=== PATIENT | female | born 2000 | race Two or more races ===

== ENCOUNTER 2024-07-25 18:17 | Emergency (ER) | payer SELFPAY ==
[2024-07-25 18:19] VITALS: BMI 37.8
[2024-07-25 18:22] VITALS: BP 129/79; PULSE 96; RESP 19; TEMP 37.1; O2SAT 98
[2024-07-25 18:27] VITALS: PULSE 96; RESP 18; O2SAT 99
--- NOTE | 2024-07-25 19:23 | EDNOTE_ITS ---
ED Abdominal Pain RME/HPI General Chief Complaint: Abdominal Pain Stated complaint: ABD PAIN Time seen by provider: 07/25/24 18:54 Arrival date/time: 07/25/24 18:17 23F with no significant PMH presents to ED with 10 min of sudden gen ab pain earlier today that completely resolved. Patient denies dysuria, vaginal bleeding, N/V, and diarrhea. Limitations: no limitations Related Data Previous Rx's ?Medication ?Instructions ?Recorded Promethazine Hcl/Dextromethorphan 1 tsp PO Q4-6HRPRN PRN cough #120 08/15/17 SYRUP * (PHENERGAN DM SYRUP *) mL ibuprofen 600 mg tablet 600 mg PO Q6HR PRN PAIN #30 tabs 08/15/17 pseudoephedrine HCl 60 mg tablet 60 mg PO [id number] PRN congestion 08/15/17 (Sudogest) #28 tabs Allergies Allergy/AdvReac Type Severity Reaction Status Date / Time No Known Allergies Allergy Verified 02/20/21 16:22 Review of Systems Review of Systems Systems Reviewed: All systems reviewed, normal except as documented Constitutional Constitutional: Reports system reviewed and no additional complaints, except as documented, Denies fever(s) and Denies headache(s) ENT Ears, Nose, Mouth, and Throat: Denies disequilibrium and Denies headache(s) Cardiovascular Cardiovascular: Reports system reviewed and no additional complaints, except as documented, Denies chest pain and Denies dyspnea Respiratory Respiratory: Reports system reviewed and no additional complaints, except as documented, Denies cough and Denies dyspnea Gastrointestinal Gastrointestinal: Reports system reviewed and no additional complaints, except as documented, Reports as per HPI, Reports abdominal pain, Denies nausea and Denies vomiting Neurologic Neurologic: Reports system reviewed and no additional complaints, except as documented, Denies confusion, Denies disequilibrium and Denies headache(s) Psychiatric Psychiatric: Denies confusion Past Medical History Social History SMOKING STATUS: Never smoker ED Exam General Limitations: Present no limitations General appearance: Present alert and in no apparent distress Head Head exam: Present atraumatic Eye Eye exam: Present normal appearance, PERRL and EOMI ENT ENT exam: Present normal exam, normal oropharynx and mucous membranes moist Neck Neck exam: Present normal inspection, full ROM and trachea midline Chest Chest inspection: Present normal inspection and symmetric chest wall rise Respiratory Respiratory exam: Present normal lung sounds bilaterally Cardiovascular Cardiovascular exam: Present regular rate, normal rhythm and normal heart sounds Abdominal Exam Abdominal exam: Present soft and normal bowel sounds Extremities Exam Extremities exam: Present normal inspection and full ROM Back Exam Back exam: Present normal inspection and full ROM Neurological Exam Neurological exam: Present alert, oriented X3 and CN II-XII intact Psychiatric Psychiatric exam: Present normal affect and normal mood Skin Skin exam: Present warm, dry, intact and normal color Course Quality Measures none Vital Signs Vital signs: Vital Signs Temperature 98.7 F 07/25/24 18:22 Pulse Rate 96 07/25/24 18:22 Respiratory Rate 19 07/25/24 18:22 Blood Pressure 129/79 07/25/24 18:22 Pulse Oximetry (%) 98 07/25/24 18:22 Oxygen Delivery Method Room Air 07/25/24 18:22 O2 at 98% on RA and WNLs Abdominal Pain MDM MDM Narrative MDM Narrative:: 23F with no significant PMH presents to ED with 10 min of sudden gen ab pain earlier today that completely resolved. Patient denies dysuria, vaginal bleeding, N/V, and diarrhea. Physical exam reveals no ab tenderness. Patient is afebrile, calm, and alert. Patient declines diagnostics because all symptoms are gone. Patient will return if worsening and/or pain is back. Patient data External records reviewed:: [facility] previous records Clinical information provided by:: patient Social determinants that could affect healthcare access:: none Patient has the following chronic illnesses:: none How is presenting disease/condition affected by chronic disease/condition?: no chronic disease Evaluation data The following diagnostics were reviewed and interpreted by me:: other (specify) (none) Lab and/or radiology exams considered but not ordered:: not ordered Interpretation Summary: n/a Medications / Prescriptions Medications or Prescriptions considered but not ordered:: not ordered Medication administrations:: n/a Consultations Consultation(s) initiated? (list below): No Diagnosis Differential diagnosis abdominal pain: abdominal pain, acute appendicitis, calculus of kidney, constipation, diverticulitis, endometriosis, gastroenteritis, pancreatitis and small bowel obstruction Most likely diagnosis given after review of the tests above:: ab pain Admission Indicated Admission indicated?: not indicated Admission Request Was there a request for admission?: No Disposition Plan Disposition Plan: Discharge Discharge Attestation Discharge Attestation: The patient and all family members were given an opportunity to ask questions and understood the discharge instructions. Discharge instructions specifically effects, indications for sooner follow up or return to the emergency department, and the expected course of current diagnosis. Patient condition: Stable Discharge Plan Plan Patient Disposition: HOME (Self Care) Disposition Comment: Stable Prescriptions/Referrals Prescriptions/Med Rec: No Action ibuprofen 600 MG tablet 600 mg PO Q6HR PRN (Reason: PAIN) Qty: 30 0RF pseudoephedrine HCl [Sudogest] 60 MG tablet 60 mg PO [id number] PRN (Reason: congestion) Qty: 28 0RF Promethazine Hcl/Dextromethorphan SYRUP * (PHENERGAN DM SYRUP *) 473 ML syrup 1 tsp PO Q4-6HRPRN PRN (Reason: cough) Qty: 120 0RF Referrals: Neeraj Gardner MD [Primary Care Provider] - In 1 week Problem List Clinical Impression: Abdominal pain Patient/Caregiver Discharge Instructions Education Materials: ED Pain, Acute, Uncertain Cause Additional Instructions: Please follow-up with PCP within 24-48 hours and return immediately if symptoms worsen. Print Language: Namibian Stand Alone Forms: Patient Portal Info Letter EVY/JAMEY Supervising Physician EVY/JAMEY Supervising Physician: Dr. Albrecht
== END 2024-07-25 19:27 | disposition home or self-care (01) ==
PROVIDERS: Emergency Provider Emergency Medicine; PCP Family Medicine
DX: R10.9 Unspecified abdominal pain (principal)
CPT/HCPCS: 99281

== ENCOUNTER 2025-03-20 03:50 | Emergency (ER) | payer MEDICAID, SELFPAY ==
[2025-03-20 03:56] VITALS: BP 129/66; PULSE 76; RESP 18; TEMP 36.5; O2SAT 98
--- NOTE | 2025-03-20 04:17 | XR_ITS ---
Examination: Abdomen sonogram, Limited Date and time of exam: March 20, 2025 0430 hours INDICATIONS: Epigastric pain radiating to the back beginning 3 hours ago Technique: Real-time kennedy scale transabdominal sonographic images of the upper abdomen obtained. Findings: Gallbladder sludge Gallstones Normal gallbladder wall 0.3 cm Common bile duct 0.3 cm Pancreatic head 3.4 cm Liver 17.2 cm fatty infiltration lobular contour no focal liver lesions Normal hepatopedal portal venous flow Patent IVC IMPRESSION: Cholelithiasis, negative for cholecystitis
[2025-03-20] MEDS: ONDANSETRON ODT 4 MG TABRAP PO (04:24)
[2025-03-20] MEDS: KETOROLAC INJ 60 MG/2 ML VIAL IM (04:24)
[2025-03-20 04:56] LABS: Basophils # (Auto) 0.0 Thou/mm3 (0.0-0.2); Basophils % (Auto) 0 % (0-2.5); Eosinophils # (Auto) 0.0 Thou/mm3 (0.0-0.5); Eosinophils % (Auto) 0 % (0-10); Hematocrit 37.5 % (36.0-46.0); Hemoglobin 12.4 g/dL (12.0-16.0); Immature Granulocytes Auto 0.02 Thou/mm3 (0.00-0.00); Lymphocytes # (Auto) 2.0 Thou/mm3 (1.0-4.8); Lymphocytes % (Auto) 21 % (10-50); Mean Corpuscular HGB Conc 33.1 g/dl (31.0-37.0); Mean Corpuscular Hemoglobin 26.5 pg (25.0-35.0); Mean Corpuscular Volume 80 fL (80-100); Monocytes # (Auto) 0.5 Thou/mm3 (0.0-0.8); Monocytes % (Auto) 5 % (0-12); Neutrophils # (Auto) 7.1 Thou/mm3 (1.8-7.7); Neutrophils % (Auto) 73 % (37-80); Nucleated Red Blood Cell # 0.00 Thou/mm3 (0.00-0.00); Nucleated Red Blood Cell % 0 /100 WBC (0); Platelet Count 262 Thou/mm3 (140-440); RDW Standard Deviation 38.5 fL (36.4-46.3); Red Blood Count 4.68 Miln/mm3 (4.00-5.20); White Blood Count 9.7 Thou/mm3 (3.6-11.0)
--- NOTE | 2025-03-20 05:10 | PRELIM_ITS ---
Gallbladder ultrasound with Doppler and wave Doppler spectral analysis. March 20, 2025 0430 hours Clinical history: RUQ pain. Comparison: No prior study is available for comparison. Findings: The visualized liver demonstrates increased echogenicity without mass or ductal dilatation. Hepatomegaly. Gallstones and gallbladder sludge. No gallbladder wall thickening or pericholecystic fluid is identified. The common duct is normal in caliber at 2.6 mm. No free fluid is demonstrated on the submitted images. The portal vein is patent with hepatopetal flow normal wave Doppler spectral analysis. The portal vein is patent with hepatopetal flow and normal with Doppler spectral analysis. The hepatic veins at patent with normal wave Doppler spectral analysis. The imaged portions of the right kidney are within normal limits. Darden sign is not available at the time of this report. Impression: Gallstones and gallbladder sludge without evidence of acute cholecystitis. If the clinical suspicion for acute cholecystitis is still high consider correlation with HIDA scan. Hepatomegaly associated with liver steatosis, suspicious for steatohepatitis. Report Electronically Signed By: Alessandro Bermudez 03/20/2025 5:10:05 AM [EST]
[2025-03-20 05:37] LABS: Alanine Aminotransferase 167 U/L (10-49); Albumin, Serum 4.4 gm/dL (3.5-5.0); Albumin/Globulin Ratio 1.7 (1.2-2.2); Alcohol, Blood Medical < 3.0 mg/dL (0-10.0); Alkaline Phosphatase 63 U/L (46-116); Anion Gap 11 (7-16); Aspartate Amino Transferase 309 U/L (0-34); BUN/Creatinine Ratio 10 Ratio (12-20); Bilirubin,Total 1.1 mg/dL (0.3-1.2); Blood Urea Nitrogen 10 mg/dL (9-23); Calcium 8.8 mg/dL (8.3-10.6); Calcium (Corrected) 8.8 mg/dL (8.5-10.1); Carbon Dioxide 24.8 mMol/L (20.0-31.0); Chloride 105 mMol/L (98-107); Creatinine (Component) 1.0 mg/dL (0.6-1.3); Globulin 2.6 gm/dL (2.3-3.5); Glucose 210 mg/dL (74-106); Lipase 35 U/L (12-53); Osmolality,Calculated 286 (275-295); Potassium 3.6 mMol/L (3.4-5.1); Sodium 141 mMol/L (136-145); Total Protein 7.0 gm/dL (5.7-8.2); eGFR > 60 See Note
[2025-03-20 05:37] LABS: Collection Type, Urine Clean Catch
--- NOTE | 2025-03-20 05:38 | PD.EDRME ---
Rapid Medical Screening Exam RME Arrival date/time: 03/20/25 03:50 24F with no significant PMH presents to ED with several hours of RUQ pain and N/V. Chief Complaint: Abdominal Pain Time Seen by Provider: 03/20/25 04:17 Vital signs: Vital Signs Temperature 97.7 F 03/20/25 03:56 Pulse Rate 76 03/20/25 03:56 Respiratory Rate 18 03/20/25 03:56 Blood Pressure 129/66 03/20/25 03:56 Pulse Oximetry (%) 98 03/20/25 03:56 Oxygen Delivery Method Room Air 03/20/25 03:56
[2025-03-20 05:48] LABS: Bacteria,Urine Rare; Bilirubin,Urine Negative (Negative); Blood,Urine 2+ (Negative); Clarity,Urine Turbid (Clear/Hazy); Color,Urine Yellow (Lt Yel-Yel); Culture Indicated,Urine Not Indicated; Glucose, Urine 3+ (Negative); Ketones,Urine 2+ (Negative); Leukocyte Esterase,Urine Positive (Negative); Nitrite,Urine Negative (Negative); PH,Urine 6.0 (5.0-7.0); Protein,Urine 1+ (Neg - Trace); RBC,Urine 7 /hpf (0-3); Specific Gravity,Urine 1.034 (1.001-1.035); Squamous Epithelial Cell,Urine 1 /hpf (0-5); Urobilinogen,Urine 2.0 mg/dL (0.0-1.0); WBC,Urine 10 /hpf (0-5)
[2025-03-20 05:51] LABS: HCG Qualitative,Urine Negative
[2025-03-20 06:07] LABS: Amphetamine/Methamp Scrn,U Negative (Negative); Barbiturate Screen,Urine Negative (Negative); Benzodiazepines Screen,Urine Negative (Negative); Benzoylecgonine Screen, Ur Negative (Negative); Fentanyl Screen,Urine Negative (Negative); Opiate Screen,Urine Negative (Negative); THC Screen,Urine Negative (Negative)
[2025-03-20 07:38] VITALS: BP 120/70; PULSE 92; RESP 16; TEMP 36.8; O2SAT 98; BMI 40.8
--- NOTE | 2025-03-20 07:53 | PD.EDADULT ---
ED General RME/HPI General Chief complaint: Abdominal Pain Stated complaint: ABD PAIN Time Seen by Provider: 03/20/25 04:17 Arrival date/time: 03/20/25 03:50 RME / HPI RME / HPI narrative: 03/20/25 03:50 24F with no significant PMH presents to ED with several hours of RUQ pain and N/V. Related Data Previous Rx's ?Medication ?Instructions ?Recorded Promethazine Hcl/Dextromethorphan 1 tsp PO Q4-6HRPRN PRN cough #120 08/15/17 SYRUP * (PHENERGAN DM SYRUP *) mL ibuprofen 600 mg tablet 600 mg PO Q6HR PRN PAIN #30 tabs 08/15/17 pseudoephedrine HCl 60 mg tablet 60 mg PO [id number] PRN congestion 08/15/17 (Sudogest) #28 tabs Allergies Allergy/AdvReac Type Severity Reaction Status Date / Time No Known Allergies Allergy Verified 03/20/25 03:51 Review of Systems Review of Systems Systems Reviewed: All systems reviewed, normal except as documented ED Exam Narrative Physical exam: GENERAL: NAD, AAOx3 HEENT: Moist mucosa. Eyes open, symmetrical, & clear CARDIO: Heart RRR, no obvious murmurs PULM: No noted coughing/dyspnea CTA B/L, no R/W/R GI: Abdomen soft, nondistended, no pain on palpation. BSx4 SKIN/MSK/EXT: No wounds/rashes/edema/amputations, no pain on palpation. Pedal pulses present B/L NEURO: AAOx3, no focal neuro deficits, able to move all 4 extremities Course Course Course Narrative: See MDM Quality Measures none Orders Category Date Time Status US gall bladder Stat Exams 03/20/25 04:17 Taken Alcohol, Blood Medical Stat Lab 03/20/25 04:45 Completed CBC Stat Lab 03/20/25 04:45 Completed CMP [Comprehensive Metabolic Panel] Stat Lab 03/20/25 04:45 Completed Drug Screen,Urine Stat Lab 03/20/25 05:23 Completed HCG Qualitative,Urine Stat Lab 03/20/25 05:25 Completed Lipase Stat Lab 03/20/25 04:45 Completed Urinalysis, C/S if Indicated Stat Lab 03/20/25 05:25 Completed Ketorolac Inj [Toradol Inj] Med 03/20/25 04:17 Discontinued 60 mg IM X1 ONE Ondansetron Odt [Zofran Odt] Med 03/20/25 04:17 Discontinued 4 mg PO X1 ONE Vital Signs Vital signs: Vital Signs Temperature 97.7 F 03/20/25 03:56 Pulse Rate 76 03/20/25 03:56 Respiratory Rate 18 03/20/25 03:56 Blood Pressure 129/66 03/20/25 03:56 Pulse Oximetry (%) 98 03/20/25 03:56 Oxygen Delivery Method Room Air 03/20/25 03:56 Discharge Plan Plan Patient Disposition: HOME (Self Care) Prescriptions/Referrals Prescriptions/Med Rec: No Action ibuprofen 600 MG tablet 600 mg PO Q6HR PRN (Reason: PAIN) Qty: 30 0RF pseudoephedrine HCl [Sudogest] 60 MG tablet 60 mg PO [id number] PRN (Reason: congestion) Qty: 28 0RF Promethazine Hcl/Dextromethorphan SYRUP * (PHENERGAN DM SYRUP *) 473 ML syrup 1 tsp PO Q4-6HRPRN PRN (Reason: cough) Qty: 120 0RF Referrals: No Primary/Family,Physician [Primary Care Provider] - In 1 week Problem List Clinical Impression: Biliary colic Patient/Caregiver Discharge Instructions Additional Instructions: On examination patient symptoms have resolved completely. Patient at this time is safe for discharge. Patient recommended to avoid fatty and greasy foods at this time Follow-up with GI specialist and primary care physician within 1 week of discharge and can consider further imaging studies such as HIDA scan. Patient is instructed should symptoms recur or worsen patient can return to the ER. Print Language: Divehi Stand Alone Forms: Mariah Award Info., Patient Portal Info Letter MDM Narrative MDM hospital course: Assumed care from previous shift. 24-year-old female with no past medical history presents to the ED due to right upper quadrant pain nausea vomiting. Patient states symptoms have happened before few months ago, however this time symptoms were worse and patient decided to come to the ER. She denies fever, chills, shortness of breath, chest pain, palpitations, recent travel, sick contacts. 0754: Labs reviewed CBC within normal limits, CMP shows some elevated liver enzymes, gallbladder ultrasound was done negative for acute cholecystitis, however she does show some gallstones. On examination patient symptoms have resolved completely. Patient at this time is safe for discharge. Follow-up with GI specialist and primary care physician within 1 week of discharge and can consider further imaging studies such as HIDA scan. Patient is instructed should symptoms recur or worsen patient can return to the ER. Clinical Information Provided by patient Medical Records Reviewed [facility] Chronic Illness/Social Conditions which may negatively complicate care or outcome(s)-explain: None or not applicable Lab Interpretation Labs: interpreted by ri Lab(s) interpretation(s): CBC unremarkable CMP shows some elevated liver enzymes Imaging Imaging interpretation: see narrative above Radiology reports / interpretation(s): See radiology report Medication Administration(s) Medication Administration History Discontinued Medications Ketorolac Tromethamine (Ketorolac Inj 60 Mg/2 Ml Vial) 60 mg IM X1 ONE Stop: 03/20/25 04:18 Last Admin: 03/20/25 04:24 Dose: 60 mg Documented By: JERRICA Ondansetron HCl (Ondansetron Odt 4 Mg Tabrap) 4 mg PO X1 ONE; Protocol Stop: 03/20/25 04:18 Last Admin: 03/20/25 04:24 Dose: 4 mg Documented By: JERRICA See above Diagnosis Differential diagnosis: Biliary colic, acute cholecystitis, cholangitis Most likely dx, and/or detailed dx discussion: Biliary colic Dispositon Disposition: Discharge Home
[2025-03-20 08:51] VITALS: BP 124/65; PULSE 74; RESP 18; TEMP 36.7; O2SAT 100
== END 2025-03-20 08:56 | disposition home or self-care (01) ==
PROVIDERS: Physician Assistant; Emergency Provider Family Medicine
DX: K80.70 Calculus of gallbladder and bile duct without cholecystitis without obstruction (principal)
CPT/HCPCS: 36415; 76705; 80053; 80307; 80320; 81001; 81025; 83690; 85025; 96372; 99283; J1885; Q0162; G0480

== ENCOUNTER 2025-06-05 19:10 | Emergency (ER) | payer MEDICAID, SELFPAY ==
[2025-06-05 19:10] VITALS: BMI 37.8
[2025-06-05 19:55] VITALS: BP 112/78; PULSE 98; RESP 16; TEMP 36.8; O2SAT 100
--- NOTE | 2025-06-05 20:07 | PD.EDABDPN ---
ED Abdominal Pain RME/HPI General Chief Complaint: Abdominal Pain Stated complaint: GALLBLADDER PAIN Time seen by provider: 06/05/25 20:00 Arrival date/time: 06/05/25 19:10 24F with history of gallstones presents to ED with continued RUQ/epigastric pain. Patient hasn't reached out to outpatient surgeon because she's afraid of surgery. Patient did not take any meds for this pain today. Patient does not want any tests, only meds. Patient denies N/V. Limitations: no limitations Related Data Previous Rx's ?Medication ?Instructions ?Recorded Promethazine Hcl/Dextromethorphan 1 tsp PO Q4-6HRPRN PRN cough #120 08/15/17 SYRUP * (PHENERGAN DM SYRUP *) mL ibuprofen 600 mg tablet 600 mg PO Q6HR PRN PAIN #30 tabs 08/15/17 pseudoephedrine HCl 60 mg tablet 60 mg PO [id number] PRN congestion 08/15/17 (Sudogest) #28 tabs Allergies Allergy/AdvReac Type Severity Reaction Status Date / Time No Known Allergies Allergy Verified 06/05/25 19:12 Review of Systems Review of Systems Systems Reviewed: All systems reviewed, normal except as documented Gastrointestinal Gastrointestinal: Reports as per HPI and Reports abdominal pain Past Medical History Past Medical History CARDIAC: Negative Congestive Heart Failure RESPIRATORY: Negative Chronic Obstructive Pulmonary Disease (COPD) GENITOURINARY: Negative Renal Disease ENDOCRINE: Negative Diabetes Mellitus Type 1 or Diabetes Mellitus Type 2 Family History FAMILY HISTORY: Positive Family Cardiac Disorders and Family Cancer (PT'S AUNT BREAST CANCER) Social History SMOKING STATUS: Never smoker ED Exam General Limitations: Present no limitations General appearance: Present alert and in no apparent distress Head Head exam: Present atraumatic Neck Neck exam: Present normal inspection, full ROM and trachea midline Chest Chest inspection: Present normal inspection and symmetric chest wall rise Neurological Exam Neurological exam: Present alert and oriented X3 Psychiatric Psychiatric exam: Present normal affect and normal mood Skin Skin exam: Present warm, dry, intact and normal color Course Quality Measures none Orders Category Date Time Status Ketorolac Inj [Toradol Inj] Med 06/05/25 20:00 Once 60 mg IM X1 ONE Vital Signs Vital signs: Vital Signs Temperature 98.3 F 06/05/25 19:55 Pulse Rate 98 06/05/25 19:55 Respiratory Rate 16 06/05/25 19:55 Blood Pressure 112/78 06/05/25 19:55 Pulse Oximetry (%) 100 06/05/25 19:55 Oxygen Delivery Method Room Air 06/05/25 19:55 O2 at 100% on RA and WNLs Abdominal Pain MDM MDM Narrative MDM Narrative:: 24F with history of gallstones presents to ED with continued RUQ/epigastric pain. Patient hasn't reached out to outpatient surgeon because she's afraid of surgery. Patient did not take any meds for this pain today. Patient does not want any tests, only meds. Patient denies N/V. Physical exam reveals uncomfortable female. Patient is afebrile and alert. Meds and anger control counselor given. Patient data External records reviewed:: [facility] previous records Clinical information provided by:: patient Social determinants that could affect healthcare access:: none Patient has the following chronic illnesses:: gallstones How is presenting disease/condition affected by chronic disease/condition?: no chronic disease Evaluation data The following diagnostics were reviewed and interpreted by me:: other (specify) (none) Lab and/or radiology exams considered but not ordered:: not ordered Interpretation Summary: n/a Medications / Prescriptions Medications or Prescriptions considered but not ordered:: ordered Medication administrations:: Medication Administration History Ketorolac Tromethamine (Ketorolac Inj 60 Mg/2 Ml Vial) 60 mg IM X1 ONE Stop: 06/05/25 20:01 above Consultations Consultation(s) initiated? (list below): No Diagnosis Differential diagnosis abdominal pain: abdominal pain, acute appendicitis, calculus of kidney, constipation, diverticulitis, endometriosis, gastroenteritis, pancreatitis, small bowel obstruction and other (gallstones) Most likely diagnosis given after review of the tests above:: gallstones Admission Indicated Admission indicated?: not indicated Admission Request Was there a request for admission?: No Disposition Plan Disposition Plan: Discharge Discharge Attestation Discharge Attestation: The patient and all family members were given an opportunity to ask questions and understood the discharge instructions. Discharge instructions specifically effects, indications for sooner follow up or return to the emergency department, and the expected course of current diagnosis. Patient condition: Stable Discharge Plan Plan Patient Disposition: HOME (Self Care) Discharge Disposition comment: Stable Prescriptions/Referrals Prescriptions/Med Rec: No Action ibuprofen 600 MG tablet 600 mg PO Q6HR PRN (Reason: PAIN) Qty: 30 0RF pseudoephedrine HCl [Sudogest] 60 MG tablet 60 mg PO [id number] PRN (Reason: congestion) Qty: 28 0RF Promethazine Hcl/Dextromethorphan SYRUP * (PHENERGAN DM SYRUP *) 473 ML syrup 1 tsp PO Q4-6HRPRN PRN (Reason: cough) Qty: 120 0RF Problem List Clinical Impression: Gallstones Patient/Caregiver Discharge Instructions Education Materials: ED Gallstones with Biliary Colic Additional Instructions: Please follow-up with PCP within 24-48 hours and return immediately if symptoms worsen. NSAIDs like ibuprofen tend to work better for this type of pain. See PCP for referral to general surgeon. Print Language: Italian Stand Alone Forms: Patient Portal Info Letter EVY/SOUVENIR ASSEMBLER Supervising Physician EVY/JAMEY Supervising Physician: Dr. Damon
[2025-06-05] MEDS: KETOROLAC INJ 60 MG/2 ML VIAL IM (20:18)
== END 2025-06-05 20:21 | disposition home or self-care (01) ==
LOC: SERX 20:18
PROVIDERS: Emergency Provider Emergency Medicine; PCP Family Medicine
DX: K80.20 Calculus of gallbladder without cholecystitis without obstruction (principal)
CPT/HCPCS: 96372; 99283; J1885

== ENCOUNTER 2025-07-18 05:50 | Day surgery (SDC) | payer MEDICAID, SELFPAY ==
[2025-07-16 12:59] VITALS: BMI 35.3
[2025-07-16 14:59] LABS: Basophils # (Auto) 0.0 Thou/mm3 (0.0-0.2); Basophils % (Auto) 0 % (0-2.5); Eosinophils # (Auto) 0.0 Thou/mm3 (0.0-0.5); Eosinophils % (Auto) 0 % (0-10); Hematocrit 41.3 % (36.0-46.0); Hemoglobin 12.9 g/dL (12.0-16.0); Immature Granulocytes Auto 0.01 Thou/mm3 (0.00-0.00); Lymphocytes # (Auto) 2.0 Thou/mm3 (1.0-4.8); Lymphocytes % (Auto) 30 % (10-50); Mean Corpuscular HGB Conc 31.2 g/dl (31.0-37.0); Mean Corpuscular Hemoglobin 26.0 pg (25.0-35.0); Mean Corpuscular Volume 83 fL (80-100); Monocytes # (Auto) 0.4 Thou/mm3 (0.0-0.8); Monocytes % (Auto) 6 % (0-12); Neutrophils # (Auto) 4.2 Thou/mm3 (1.8-7.7); Neutrophils % (Auto) 63 % (37-80); Nucleated Red Blood Cell # 0.00 Thou/mm3 (0.00-0.00); Nucleated Red Blood Cell % 0 /100 WBC (0); Platelet Count 304 Thou/mm3 (140-440); RDW Standard Deviation 42.4 fL (36.4-46.3); Red Blood Count 4.97 Miln/mm3 (4.00-5.20); White Blood Count 6.7 Thou/mm3 (3.6-11.0)
[2025-07-16 15:08] LABS: INR 1.1 (0.9-1.3); Partial Thromboplastin Time 26.9 Seconds (22.0-36.0); Prothrombin Time 11.2 Seconds (9.0-12.2)
[2025-07-16 15:09] LABS: Alanine Aminotransferase 32 U/L (10-49); Albumin, Serum 4.8 gm/dL (3.5-5.0); Albumin/Globulin Ratio 2.0 (1.2-2.2); Alkaline Phosphatase 54 U/L (46-116); Anion Gap 10 (7-16); Aspartate Amino Transferase 24 U/L (0-34); BUN/Creatinine Ratio 7 Ratio (12-20); Bilirubin,Total 0.8 mg/dL (0.3-1.2); Blood Urea Nitrogen < 5 mg/dL (9-23); Calcium 9.8 mg/dL (8.3-10.6); Calcium (Corrected) 9.8 mg/dL (8.5-10.1); Carbon Dioxide 25.4 mMol/L (20.0-31.0); Chloride 107 mMol/L (98-107); Creatinine (Component) 0.7 mg/dL (0.6-1.3); Estimated Creatinine Clearance 138.5 mL/min (>60); Globulin 2.4 gm/dL (2.3-3.5); Glucose 87 mg/dL (74-106); Osmolality,Calculated 279 (275-295); Potassium 4.1 mMol/L (3.4-5.1); Sodium 142 mMol/L (136-145); Total Protein 7.2 gm/dL (5.7-8.2); eGFR > 60 See Note
[2025-07-16 15:12] LABS: HCG,Qualitative Serum Negative
--- NOTE | 2025-07-17 15:07 | SUR.PREOP ---
Pt notified to come in at 0600 tomorrow for surgery.
--- NOTE | 2025-07-17 17:13 | ESHP_ITS ---
RE: AMADOU CYR : 2000 DATE OF ADMISSION: 07/17/2025 DATE OF SURGERY: 07/18/2025 HISTORY OF PRESENT ILLNESS: This patient is a 24-year-old female who speaks good Senegalese. She was seen at the [facility] back in April, about 3 months ago. She was referred for laparoscopic cholecystectomy. Patient had pain over the upper abdomen radiating to the back on and off since last July. This happened after eating greasy food. Patient had a severe episode of abdominal pain and went to emergency room on 03/20/2025, the pain lasting for more than 3 hours in the epigastric region and to the back. Ultrasound showed gallbladder sludge and stones and she was, therefore, advised to have surgery. Patient denies any other major medical illness. When I saw her, she was scheduled for surgery. However, on 06/05/2025, the patient went to the emergency room for a second time at [facility] and required some pain medication and discharged. Patient had mild pain about a week ago last Monday. Patient has a strong family history of gallstones in her mother and grandmother. 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 PAST MEDICAL HISTORY: Revealed that she has a history of asthma. PAST SURGICAL HISTORY: None. PHYSICAL EXAMINATION: GENERAL: Revealed slightly obese female who is 5 feet 4 inches tall weighing 206 pounds. VITAL SIGNS: Revealed temperature normal, BP was 119/72, pulse rate was 76. HEENT: Head normal. Eyes revealed no jaundice. Ears, nose, throat were normal. LUNGS: Normal with good breath sounds on both sides. HEART: Sinus rhythm with no murmurs. ABDOMEN: Showed no tenderness anywhere. IMAGING: I reviewed the ultrasound done at [facility] on 03/20/2025 and it showed gallbladder sludge and gallstones. IMPRESSION: 1. Symptomatic cholelithiasis. 2. Obesity. COURSE OF ACTION: I advised the patient to undergo laparoscopic cholecystectomy because of the recurrent symptoms. The risks of the procedure including potential complications like bile duct injury, bleeding, or a need for open surgery, etc., were discussed with the patient. She is agreeable. DT: 16:43:56 TT: 17:12:00 Ref: [id number] - TID: [id number]
[2025-07-18] VITALS (8 sets, daily range): BP systolic 123–136; BP diastolic 68–77; PULSE 92–106; RESP 19–20; TEMP 36.2–36.6; O2SAT 96–100; BMI 35.2
[2025-07-18] MEDS: RINGERS LACTATED 1000 ML 1,000 ML 20 ML IV (06:50)
--- NOTE | 2025-07-18 07:23 | SUR.PREOP ---
Patient expressed gratitude for prayer before their procedure.
--- NOTE | 2025-07-18 10:22 | SUR.PHASEI ---
1022: Pt. wakes to name then drifts back to sleep, vitals stable, breathing unlabored, no complaint of pain or nausea, x4 dressing to ABD CDI, no active bleed noted, report received from Leny SINGH and MD Page.
--- NOTE | 2025-07-18 10:32 | PD.SUROPNT ---
Date of Procedure 07/18/25 Pre Op Diagnosis Symptomatic cholelithiasis Post Op Diagnosis Same Procedure Laparoscopic cholecystectomy Findings Patient was found to have normal gallbladder with multiple stones Procedure Description After endotracheal anesthesia was given the patient was placed in supine position and the abdomen was prepped with chloroprep solution and draped in a sterile manner. After time out was performed I injected a few cc of of half percent Marcaine with epinephrine below the umbilicus and I made an incision for about 3 cm in length. The fascia was cleaned and Veress needle was inserted to create a pneumoperitoneum up to 15 mmHg. Then introduced a 12 mm trocar and a 10 mm camera through the fascia and I inspected the intra-abdominal organs as well as the gallbladder and the liver. Another 5 mm trocar was inserted in the epigastric region under direct vision after injecting some local anesthesia. At this time the patient was kept in reverse Trendelenburg position with the left lateral tilt. The third 5 mm trocar was inserted over the mid axillary line under direct vision and a Fransisco and Pao grasper was used to hold the fundus of the gallbladder. The retraction was carried out by the certified first assistant moving the fundus of the gallbladder towards the right shoulder of the patient to create enough traction. I placed a another 5 mm trocar in the midaxillary line just lateral to the rectus muscle under direct vision. I used a fenestrated grasper to retract the neck of the gallbladder laterally towards the patient's right hip. The Calot's triangle was exposed and I achieved the critical view of safety as follows: I dissected out the fatty tissue from the hepatocystic triangle and cleared this area. I also dissected inferior and posterior to the gallbladder to identify the cystic duct and the gallbladder wall. Then superiorly I dissected along the cystic plate up to lower one third third of the gallbladder to lift the gallbladder from the liver. At this time I confirmed that only 2 structures entering the gallbladder were cystic artery and the cystic duct. The common duct was seen distally but no dissection was carried out around the duct. I did not see any need for operative cholangiogram in this patient. The cystic duct was clipped doubly and then divided and cystic artery was similarly dealt with. Then the gallbladder was removed from the liver bed using Harmonic maninder to control the small blood vessels as the dissection proceeded. Then the gallbladder was from the liver bed completely and delivered through the umbilical port using an Endopouch. The liver bed was coagulated with cautery to obtain satisfactory hemostasis. The trocars were pulled out from the abdominal cavity and the fascia at the umbilical incision was closed with interrupted 0 Ethibond. Subcutaneous tissues was closed with 3-0 chromic and injected a few cc of half percent Marcaine with epinephrine and the skin was closed with interrupted 4-0 nylon stitches at all the trocar sites. Dressing was applied with 2 x 2 and Tegaderm. Patient tolerated the procedure well and returned to recovery room in stable condition. Anesthesia GETA Pathology / specimen Other (Gallbladder and the stones) IVF Infused 1,000 Estimated Blood Loss 20 Surgeon Nelda Walker MD Surgical Staff Operation Date: 07/18/25 08:30 Case Staff Anesthesiologist: Ankur Page RN First Assistant: Alden Yen
[2025-07-18] MEDS: fentaNYL CIT INJ 50 mCg/ML AMP 2ML 25 MCG IVP ×3 (10:34→10:54)
--- NOTE | 2025-07-18 11:25 | SUR.PHASEII ---
1125: Pt. AAOx4, vitals stable, breathing unlabored, no complaint of pain or nausea, x4 dressing to ABD CDI, no active bleed noted, pt. tolerated sips of water well, pt. ambulated to wheelchair with steady gait and no assist, no complications. Gave discharge instructions to the pt. and her mom, both verbalized understanding and had no further questions. Pt. left with all personal belongings.
== END 2025-07-18 11:25 | disposition home or self-care (01) ==
PROVIDERS: PCP Family Medicine; Referring Provider Surgery; Visit Provider Surgery
PROC: 0FT44ZZ Resection of Gallbladder, Percutaneous Endoscopic Approach (ICD-10-PCS; CPT 47562; principal; 2025-07-18 08:30)
DX: K80.20 Calculus of gallbladder without cholecystitis without obstruction (principal); E66.9 Obesity, unspecified; Z68.35 Body mass index [BMI] 35.0-35.9, adult
CPT/HCPCS: 47562; 36415; 80053; 84703; 85025; 85610; 85730; A4217; A4649; J0131; J1100; J1885; J2250; J2405; J2704; J3010; J3490; J7120; A9270